=== PATIENT | female | born 1960 | race Caucasian/White ===

== ENCOUNTER → 2018-04-10 14:15 | Outpatient (CLI) | payer OTHER, SELFPAY ==
--- NOTE | 2018-04-10 | DI.MRI.S_ITS ---
PROCEDURE: MR KNEE LT WO CON INDICATIONS: PAIN IN LEFT KNEE TECHNIQUE: Noncontrast sagittal PD fast spin echo and T2 fast spin echo with fat saturation, sagittal 3-D FLASH with fat saturation; coronal T1 spin echo and PD fast spin echo with fat saturation, and axial PD fast spin echo with fat saturation through the knee. COMPARISON: None. FINDINGS: Image quality: Excellent. Menisci: Amorphous high signal intensity within the anterior and posterior horns of the medial meniscus, as well as the anterior and posterior horns of the lateral meniscus is present, without articular surface extension, consistent with mucoid degeneration. No evidence of tearing. Cruciate ligaments: The anterior and posterior cruciate ligaments appear intact. Medial structures: The medial collateral ligament appears intact. Visualized portions of the pes anserinus tendons appear normal. No abnormal bursal fluid. Lateral structures: The lateral collateral ligament, long and short heads of the biceps femoris tendon appear intact. The popliteus tendon appears iliana. Iliotibial band appears normal. Anterior structures: The quadriceps and patellar tendons appear intact. Patellar alignment is normal. No femoral trochlear dysplasia or ventral trochlear prominence. No edema in the infrapatellar fat pad. Bones and cartilage: No bone marrow contusions or fractures. Multiple intraosseous ganglia within the medial and lateral patellar facets are present. Severe articular cartilage loss overlies the medial and lateral patellar facets as well as patellar apex. Mild diffuse articular cartilage loss overlies the weightbearing aspects of the medial femoral condyle and medial tibial plateau. Joint space: There is physiologic knee joint fluid. Trace Wong's cyst. Normal appearing synovial plicae are incidentally noted. IMPRESSION: 1. No evidence of internal derangement. 2. Medial and patellofemoral compartment articular cartilage loss. 3. Trace Wong's cyst. Dictated by: Lukas Dennis M.D. on 04/10/2018 at 15:54 Approved by: Lukas Dennis M.D. on 04/10/2018 at 15:57
== END ==
PROVIDERS: Visit Provider Nurse Practitioner Family
DX: M25.562 Pain in left knee (principal)
CPT/HCPCS: 73721

== ENCOUNTER 2018-05-13 09:04 | Emergency (ER) | payer OTHER, SELFPAY ==
--- NOTE | 2018-05-13 09:06 | ED_ITS ---
HPI - Extremity Injury (Upper) General Chief Complaint: Extremity Injury, Upper Stated Complaint: FELL/HURT LEFT WRIST Time Seen by Provider: 05/13/18 09:05 Source: patient Mode of arrival: ambulatory Limitations: no limitations History of Present Illness HPI narrative: 57-year-old female here for evaluation of left wrist pain. Patient states that last evening she was walking down a slope in her yd when she fell backwards landing on her buttocks and her left wrist. She is unsure how she landed on her wrist. Did not hit her head. No loss of consciousness. States she has had pain in her wrist since then. Came in today for evaluation Related Data Previous Rx's Medication Instructions Recorded hydrocodone-acetaminophen [[place]] 1 tab PO Q4-6H PRN #10 tab 05/13/18 Allergies Allergy/AdvReac Type Severity Reaction Status Date / Time CODEINE Allergy Unknown Uncoded 11/02/17 12:29 Review of Systems Constitutional Denies frequent falls Cardiovascular Denies chest pain, Denies palpitations and Denies dyspnea Respiratory Denies dyspnea Musculoskeletal Comments: Left wrist pain Integumentary/Breasts Denies lesions and Denies rash Neurologic Denies frequent falls Comments: No numbness tingling left wrist Endocrine Denies palpitations Hematologic/Lymphatic Denies easy bleeding and Denies easy bruising [facility] Medical History Healthy adult (Acute) Surgical History No pertinent past surgical history (Acute) Exam Initial Vital Signs Initial Vital Signs: Vital Signs Temperature 97.2 F L 05/13/18 09:16 Pulse Rate 90 05/13/18 09:16 Respiratory Rate 12 05/13/18 09:16 Blood Pressure 135/86 05/13/18 09:16 Pulse Oximetry 100 05/13/18 09:16 Const General: cooperative, healthy appearing, comfortable, well developed, well groomed and acute distress HENMT Head: normal to inspection and normocephalic Resp Effort & Inspection: normal respiratory effort Cardio Pulses: radial pulses present on the left Skin Lesions: no lesions Rashes: no rashes Neuro Sensory Exam: no sensory deficits noted Extrem Other: Tenderness to palpation over the distal radius No ulnar styloid tenderness No anatomic snuffbox tenderness Pain with supination Patient able to pronate Left elbow unremarkable Left shoulder unremarkable Psych Appearance: grossly normal and well kempt Procedures Orthopedic Splinting/Casting Injury #1: Side: left Upper Extremity Injury Location: wrist Upper Extremity Immobilizer: sugar tong splint Course Orders Ordered: ED Orders 05/13/18 09:05 XR wrist LT min 3V Stat Vital Signs - 8 hr 05/13/18 09:16 Temperature 97.2 F L Pulse Rate 90 Respiratory Rate 12 Blood Pressure 135/86 Pulse Oximetry 100 [facility] - Extremity Injury (Upper) Imaging Data XR wrist: Radiologist's impression: [address] [address] XRay Report Signed Patient: Marissa Jarquin KMR#: [id number] : [id number]:[id number] Age/Sex: 57 / FDate of Service: 05/13/18 Loc: ED Accession Number: [id number] Procedure: XR wrist LT min 3V Ordering Provider: Nick Montenegro D.O. PROCEDURE: XR WRIST LT MIN 3V INDICATIONS: fall with pain TECHNIQUE: 3 views of the wrist were acquired. COMPARISON: None. FINDINGS: Bones: Minimally displaced distal radial metaphysis fracture. Scaphoid view: Not obtained. Soft tissues: No suspicious soft tissue calcifications. IMPRESSION: Minimally displaced distal radial metaphyseal fracture. Dictated by: Kaye Segal M.D. on 05/13/2018 at 9:35 Approved by: Kaye Segal M.D. on 05/13/2018 at 9:35 [facility] Narrative Medical decision making narrative: Patient is neurovascularly intact. X-ray shows a distal radius fracture Patient was placed in a splint by myself as described above. She was given a copy of her x-rays to take to the [facility] for orthopedic follow-up Patient was given return precautions. She states that she can take [place] at home despite her allergies to codeine. She states she does take some Benadryl and has no problem with it. She was given care instructions with regard to the splint. Discharge Plan Departure Patient Disposition: Home Clinical Impression: Distal radius fracture, left Instructions: DI for Wrist Fracture, How to Take Care of Your Splint Activity Restrictions/Additional Instructions: [place] Also contact your primary care doctor. Keep the splint on and keep it clean and keep it dry. Return to the emergency department for any new or worsening symptoms. Prescriptions: New hydrocodone-acetaminophen [[place]] 5-325 mg tablet 1 tab PO Q4-6H PRN (Reason: pain) Qty: 10 RF: 0
[2018-05-13 09:16] VITALS: BP 135/86; PULSE 90; RESP 12; TEMP 36.2; O2SAT 100
--- NOTE | 2018-05-13 09:46 | PC.NURSE ---
placed by dr. flores
== END 2018-05-13 10:34 | disposition home or self-care (01) ==
PROVIDERS: Emergency Provider Emergency Medicine
DX: S52.502A Unspecified fracture of the lower end of left radius, initial encounter for closed fracture (principal); W01.0XXA Fall on same level from slipping, tripping and stumbling without subsequent striking against object, initial encounter
CPT/HCPCS: 29125; 29240; 73110; 99283

== ENCOUNTER 2019-04-25 15:43 | Emergency (ER) | payer OTHER, SELFPAY ==
[2019-04-25] VITALS (11 sets, daily range): BP systolic 99–144; BP diastolic 50–92; PULSE 60–114; RESP 14–22; TEMP 35.9–36.6; O2SAT 93–100; BMI 23.8
--- NOTE | 2019-04-25 15:55 | DI.RAD.S_ITS ---
PROCEDURE: XR RIBS LT MIN 3V W CXR1V INDICATIONS: bucked off horse TECHNIQUE: 2 views of the left ribs were acquired, along with a single view chest. COMPARISON: [facility], CR, XR HIP W PEL IF DONE LT 2V, 04/25/2019, 15:57. FINDINGS: Surgical changes and devices: None. Bones and chest wall: Lateral third and fourth rib fractures, minimally displaced. Also noted are left L2 and L3 transverse process fractures. Lungs and pleura: Small left pneumothorax. No pleural effusion identified. No focal consolidation. Scattered atelectasis. Mediastinum: Mediastinal contours appear normal. Heart size is normal. IMPRESSION: Small left pneumothorax Lateral left third and fourth rib fractures. Left L2 and L3 transverse process fractures. Findings were personally telephoned and discussed with Dr. Vallejo in the emergency department at 1630 hrs 04/25/19. Dictated by: Mamadou Kelly M.D. on 04/25/2019 at 16:23 Approved by: Mamadou Kelly M.D. on 04/25/2019 at 16:33
--- NOTE | 2019-04-25 15:56 | DI.RAD.S_ITS ---
PROCEDURE: XR HIP W PEL IF DONE LT 2V INDICATIONS: bucked off horse TECHNIQUE: AP pelvis with lateral view(s) of the left hip(s). COMPARISON: None. FINDINGS: Bones: No fractures or dislocations. Pelvic ring appears intact. No suspicious bony lesions. Soft tissues: The visualized bowel gas pattern is normal. No suspicious soft tissue calcifications. IMPRESSION: No fracture identified Dictated by: Mamadou Kelly M.D. on 04/25/2019 at 16:33 Approved by: Mamadou Kelly M.D. on 04/25/2019 at 16:34
--- NOTE | 2019-04-25 17:08 | ED_ITS ---
HPI - Fall General Chief Complaint: Fall Stated Complaint: back pain, thrown from horse Time Seen by Provider: 04/25/19 16:30 Source: patient Mode of arrival: Ambulatory History of Present Illness HPI Narrative: This is a 58-year-old male comes in with complaint of being thrown from her horse. Patient states she was bucked off, she did not think she hit her head but she also was dazed for a couple 1-2 minutes according to her . He states that she quickly came back to her normal baseline. Patient denies headache, she denies neck pain, she does complain of some lower back pain and kind of left-sided chest pain. Patient denies any shortness of breath. She denies any dizziness. No vision changes. Denies any vomiting but has had some slight nausea. She denies any incontinence of bowel or bladder, she denies any weakness, numbness of her lower extremities. Patient states that she does have pain kind of in her lower back particularly when she tries to lift her left leg causes pain in the back but not in her leg. Patient denies any blood thinners. She takes naproxen regularly for chronic back issues. Denies any alcohol today, states she drinks occasionally. Positive for tobacco. Related Data Home Medications Medication Instructions Recorded Confirmed naproxen 500 mg PO BID 04/25/19 04/25/19 Allergies Allergy/AdvReac Type Severity Reaction Status Date / Time codeine Allergy Unknown Verified 04/25/19 17:11 Review of Systems Review of Systems ROS Unobtainable: All systems reviewed & are unremarkable except as noted in HPI and below Exam Narrative Exam Narrative: GEN: Patient appears in mild distress. HEAD: No evidence of trauma, no raccoon/Rosales sign. NECK: Nontender, painless range of motion, trachea midline Negative Nexus criteria, there is no midline tenderness, distracting injury, altered mental status, neuro deficit, recent EtOH. EYES: PERRLA, EOMI ENT: External inspection normal, trachea is midline, TM's are normal no h emotypanum, Nares are clear, no septal hematoma, no dental or oral injury, airway is normal and with normal occlusion, No bony tenderness RESP: Chest tender on the left and has symmetric movement, no flail chest, no ecchymosis, breath sounds bilateral bases. no crackles, wheezes or rales CVS: Heart sounds are normal, no murmur noted, No JVD. ABG/GI: Nontender, soft, normal bowel sounds, no distention, no organomegaly, pelvic rock is negative NEURO: Oriented AOx3, neuro is grossly intact, sensation and motor is normal all 4 extremities moving, cranial nerves II through XII are intact, GCS is 15 PSYCH: Normal mood and affect SKIN: Intact, warm and dry, no crepitus and without decubitus BACK: No CVA tenderness, no vertebral tenderness, patient has mild left lumbar discomfort, no step-off's, no crepitus EXT: Atraumatic, hips are nontender, no pedal edema, normal color and temperature, normal range of motion of extremities with normal tendon exam, 2+ pulses in all four extremities Initial Vital Signs Initial Vital Signs: Vital Signs Temperature 96.7 F L 04/25/19 15:48 Pulse Rate 114 H 04/25/19 15:48 Respiratory Rate 18 04/25/19 15:48 Blood Pressure 121/72 04/25/19 15:48 Pulse Oximetry 96 04/25/19 15:48 [facility] Medical History Healthy adult (Acute) Surgical History No pertinent past surgical history (Acute) Social History Smoking Status: Current every day smoker Social History (Updated 04/25/19 @ 18:32 by Amanda Vallejo DO) Smoking Status: Current every day smoker alcohol intake: current substance use type: does not use Course Orders Ordered: ED Orders 04/25/19 15:55 XR ribs LT min 3V w CXR1V Stat 04/25/19 15:56 XR hip w pel if done LT 2V Stat 04/25/19 17:09 CT cervical spine wo con Stat CT chest abd pel w con Stat CT head/brain wo con Stat EKG-12 Lead Stat 04/25/19 17:20 Complete Blood Count AUTO DIFF Stat Comprehensive Metabolic Panel Stat Ethanol (ETOH) Stat Lipase Stat Troponin & CK Cardiac Panel Stat Type and Screen Stat 04/25/19 18:40 Urine Microscopic Stat 04/25/19 19:49 XR chest 1V Stat Discontinued Medications Sodium Chloride (Normal Saline 0.9%) 1,000 mls @ 1,000 mls/hr IV BOLUS ONE Stop: 04/25/19 18:08 Last Admin: 04/25/19 17:40 Dose: 1,000 mls/hr Documented by: JULIUS Lidocaine/Sodium Bicarbonate (Buffered Lidocaine 10 Ml Syr) 10 ml INJ NOW ONE Stop: 04/25/19 19:04 Morphine Sulfate (Morphine) 2 mg IV NOW ONE Stop: 04/25/19 17:11 Last Admin: 04/25/19 17:40 Dose: 2 mg Documented by: JULIUS Morphine Sulfate (Morphine) 4 mg IM NOW ONE Stop: 04/25/19 18:09 Last Admin: 04/25/19 18:12 Dose: 4 mg Documented by: JULIUS Vital Signs Vital signs: Vital Signs - 8 hr 04/25/19 15:48 04/25/19 17:00 04/25/19 17:30 Temperature 96.7 F L Pulse Rate 114 H 60 100 H Respiratory Rate 18 17 14 Blood Pressure 121/72 Blood Pressure [Left Arm] 142/81 H 141/92 H Pulse Oximetry 96 100 99 04/25/19 18:00 04/25/19 18:30 04/25/19 19:00 Temperature Pulse Rate 94 H 102 H 105 H Respiratory Rate 17 17 18 Blood Pressure Blood Pressure [Left Arm] 141/90 H 136/88 144/92 H Pulse Oximetry 96 100 100 04/25/19 19:20 04/25/19 19:40 04/25/19 19:55 Temperature Pulse Rate 105 H 97 H Respiratory Rate 21 14 22 Blood Pressure Blood Pressure [Left Arm] 118/57 L 99/50 L Pulse Oximetry 100 100 04/25/19 20:00 Temperature Pulse Rate 92 H Respiratory Rate 15 Blood Pressure Blood Pressure [Left Arm] 123/72 Pulse Oximetry 93 MDM - Fall Lab Data Attestation: I reviewed the patient's lab results. Result diagrams: 04/25/19 17:20 04/25/19 17:20 Labs: Lab Results 04/25/19 04/25/19 04/25/19 Range/Units 17:20 17:20 17:20 WBC 14.8 H (4.5-11.0) X10^3/uL RBC 4.21 (4.0-5.2) X10^6/uL Hgb 13.6 (12.0-16.0) g/dL Hct 39.6 (36-46) % MCV 94.1 (80-100) fL MCH 32.3 (26-34) PG MCHC 34.3 (30-36) % RDW 12.8 (11.6-14.8) % Plt Count 165 (150-400) X10^3/uL Neut % (Auto) 84.7 H (50-75) % Lymph % (Auto) 10.6 L (25-40) % [place] % (Auto) 4.4 (3-14) % Eos % (Auto) 0.1 L (2-4) % Baso % (Auto) 0.2 (0-2) % Neut # (Auto) 75793 H (4287-5457) /uL Lymph # (Auto) 1600 (0413-8934) /uL [place] # (Auto) 700 (0-900) /uL Eos # (Auto) 0 (0-450) /uL Baso # (Auto) 0 (0-100) /uL Sodium 138 (137-145) mmol/L Potassium 3.7 (3.4-5.1) mmol/L Chloride 101 (98-107) mmol/L Carbon Dioxide 26 (22-32) mmol/L BUN 20 H (7-17) mg/dL Creatinine 0.80 (0.52-1.04) mg/dL Estimated GFR > 60.0 (>60) mL/min BUN/Creatinine Ratio 25.0 H (6-22) Glucose 124 H (70-100) mg/dL Calcium 10.1 (8.4-10.2) mg/dL Total Bilirubin 0.4 (0.2-1.3) mg/dL AST 64 H (14-36) IU/L ALT 40 (9-52) IU/L Alkaline Phosphatase 110 (38-126) U/L Total Creatine Kinase 732 H (30-135) U/L CK-MB (CK-2) 13.70 H (<2.37) ng/mL CK-MB (CK-2) Rel Index 1.9 (1.5-5.0) % Troponin I < 0.012 (0.01-0.034) ng/mL Total Protein 7.3 (6.3-8.2) g/dL Albumin 4.3 (3.5-5.0) g/dL Globulin 3.0 (1.7-4.1) g/dL Albumin/Globulin Ratio 1.4 (1.0-2.8) Lipase 39 (23-300) U/L Urine RBC (0-5/HPF) Urine WBC (0-5/HPF) Ur Squamous Epith Cells (0-5/HPF) Urine Bacteria (None) Hyaline Casts (None) Ur Culture Indicated? Ethyl Alcohol < 10 ( - 10) mg/dL Blood Type O Positive Antibody Screen Negative 04/25/19 Range/Units 18:40 WBC (4.5-11.0) X10^3/uL RBC (4.0-5.2) X10^6/uL Hgb (12.0-16.0) g/dL Hct (36-46) % MCV (80-100) fL MCH (26-34) PG MCHC (30-36) % RDW (11.6-14.8) % Plt Count (150-400) X10^3/uL Neut % (Auto) (50-75) % Lymph % (Auto) (25-40) % [place] % (Auto) (3-14) % Eos % (Auto) (2-4) % Baso % (Auto) (0-2) % Neut # (Auto) (5806-1446) /uL Lymph # (Auto) (9347-8687) /uL [place] # (Auto) (0-900) /uL Eos # (Auto) (0-450) /uL Baso # (Auto) (0-100) /uL Sodium (137-145) mmol/L Potassium (3.4-5.1) mmol/L Chloride (98-107) mmol/L Carbon Dioxide (22-32) mmol/L BUN (7-17) mg/dL Creatinine (0.52-1.04) mg/dL Estimated GFR (>60) mL/min BUN/Creatinine Ratio (6-22) Glucose (70-100) mg/dL Calcium (8.4-10.2) mg/dL Total Bilirubin (0.2-1.3) mg/dL AST (14-36) IU/L ALT (9-52) IU/L Alkaline Phosphatase (38-126) U/L Total Creatine Kinase (30-135) U/L CK-MB (CK-2) (<2.37) ng/mL CK-MB (CK-2) Rel Index (1.5-5.0) % Troponin I (0.01-0.034) ng/mL Total Protein (6.3-8.2) g/dL Albumin (3.5-5.0) g/dL Globulin (1.7-4.1) g/dL Albumin/Globulin Ratio (1.0-2.8) Lipase (23-300) U/L Urine RBC 0-1/hpf (0-5/HPF) Urine WBC 0-1/hpf (0-5/HPF) Ur Squamous Epith Cells 0-1 /hpf (0-5/HPF) Urine Bacteria None seen (None) Hyaline Casts 0-1/lpf (None) Ur Culture Indicated? Cult not indicated Ethyl Alcohol ( - 10) mg/dL Blood Type Antibody Screen Urine Dip Bedside Urine Glucose Negative Bedside Urine Bilirubin - Negative Bedside Urine Ketone - Negative Urine Specific [place] 1.010 Bedside Urine Occult Blood + Bedside Urine pH 5.5 Bedside Urine Protein - Negative Bedside Urine Urobilinogen - Negative Bedside Urine Nitrite - Negative Bedside Urine Leukocytes - Negative Esterase Imaging Data Chest x-ray: Radiologist's impression: [address] [address] XRay Report Signed Patient: Marissa Jarquin KMR#: [id number] : 1Acct:[id number] Age/Sex: 58 / FDate of Service: 04/25/19 Loc: ED Accession Number: [id number] Procedure: XR ribs LT min 3V w CXR1V Ordering Provider: Amanda Vallejo D.O. PROCEDURE: XR RIBS LT MIN 3V W CXR1V INDICATIONS: bucked off horse TECHNIQUE: 2 views of the left ribs were acquired, along with a single view chest. COMPARISON: [facility], [place]ISY, XR HIP W PEL IF DONE LT 2V, 04/25/2019, 15:57. FINDINGS: Surgical changes and devices: None. Bones and chest wall: Lateral third and fourth rib fractures, minimally displaced. Also noted are left L2 and L3 transverse process fractures. Lungs and pleura: Small left pneumothorax. No pleural effusion identified. No focal consolidation. Scattered atelectasis. Mediastinum: Mediastinal contours appear normal. Heart size is normal. IMPRESSION: Small left pneumothorax Lateral left third and fourth rib fractures. Left L2 and L3 transverse process fractures. Findings were personally telephoned and discussed with Dr. Vallejo in the emergency department at 1630 hrs 04/25/19. Dictated by: Mamadou Kelly M.D. on 04/25/2019 at 16:23 Approved by: Mamadou Kelly M.D. on 04/25/2019 at 16:33 pelvis/hip: Radiologist's impression: [address] [address] XRay Report Signed Patient: Marissa Jarquin KMR#: [id number] : [id number]:[id number] Age/Sex: 58 / FDate of Service: 04/25/19 Loc: ED Accession Number: [id number] Procedure: XR hip w pel if done LT 2V Ordering Provider: Amanda Vallejo D.O. PROCEDURE: XR HIP W PEL IF DONE LT 2V INDICATIONS: bucked off horse TECHNIQUE: AP pelvis with lateral view(s) of the left hip(s). COMPARISON: None. FINDINGS: Bones: No fractures or dislocations. Pelvic ring appears intact. No suspicious bony lesions. Soft tissues: The visualized bowel gas pattern is normal. No suspicious soft tissue calcifications. IMPRESSION: No fracture identified Dictated by: Mamadou Kelly M.D. on 04/25/2019 at 16:33 Approved by: Mamadou Kelly M.D. on 04/25/2019 at 16:34 CT scan - head: Radiologist's impression: [address] [address] [address] Scan Report Signed Patient: Marissa Jarquin KMR#: [id number] : [id number]:[id number] Age/Sex: 58 / FDate of Service: 04/25/19 Loc: ED Accession Number: [id number] Procedure: CT head/brain wo con Ordering Provider: Amanda Vallejo D.O. PROCEDURE: CT HEAD/BRAIN WO CON INDICATIONS: low back pain, rib pain, bucked off horse TECHNIQUE: Noncontrast 4.5 mm thick angled axial sections acquired from the foramen magnum to the vertex, with coronal and sagittal reformats. For radiation dose reduction, the following was used: automated exposure control, adjustment of mA and/or kV according to patient size. COMPARISON: None. FINDINGS: Image quality: Excellent. CSF spaces: Basal cisterns are patent. No extra-axial fluid collections. Ventricles are T0 parenchyma hemorrhage present in the left frontal lobe on image 20 series 2. There is also curvilinear hyperdensity seen in the region of the right convexity sulci image 25 series 2 which could represent extra-axial/subarachnoid blood. Skull and face: Calvarium and visualized facial bones are intact, without suspicious lesions. Sinuses: Visualized sinuses and mastoids are clear. IMPRESSION: Bilateral subtle areas of suspected acute intracranial hemorrhage at the vertex as detailed above. Critical findings were personally telephoned and discussed with Dr. Vallejo in the emergency department at 1832 hours 04/25/19. Dictated by: Mamadou Kelly M.D. on 04/25/2019 at 18:15 Approved by: Mamadou Kelly M.D. on 04/25/2019 at 18:33 CT Cspine: Radiologist's impression: [place] [address] CT Scan Report Signed Patient: Marissa Jarquin KMR#: [id number] : [id number]:[id number] Age/Sex: 58 / FDate of Service: 04/25/19 Loc: ED Accession Number: [id number] Procedure: CT cervical spine wo con Ordering Provider: Amanda Vallejo D.O. PROCEDURE: CT CERVICAL SPINE WO CON INDICATIONS: low back pain, rib pain, bucked off horse TECHNIQUE: Noncontrast 3 mm thick sections acquired from the skull base to the T4 level. Sagittal and coronal reformats were then constructed. For radiation dose reduction, the following was used: automated exposure control, adjustment of mA and/or kV according to patient size. COMPARISON: [facility], CR, XR RIBS LT MIN 3V W CXR1V, 04/25/2019, 15:57. FINDINGS: Image quality: Excellent. Bones: No fractures or dislocations. Visualized superior ribs are intact. Straightening of the normal cervical lordosis and spondylitic changes, most pronounced at C5-C6. Diffuse facet arthropathy Soft tissues: Small left pneumothorax (known) IMPRESSION: No cervical spinal fracture identified. Small left pneumothorax (known) Dictated by: Mamadou Kelly M.D. on 04/25/2019 at 18:18 Approved by: Mamadou Kelly M.D. on 04/25/2019 at 18:21 chest/abd/pelvis CT: Radiologist's impression: [address] [address] [address] Scan Report Signed Patient: Marissa Jarquin KMR#: [id number] : [id number]:[id number] Age/Sex: 58 / FDate of Service: 04/25/19 Loc: ED Accession Number: [id number] Procedure: CT chest abd pel w con Ordering Provider: Amanda Vallejo D.O. PROCEDURE: CT CHEST ABD PEL W CON INDICATIONS: low back pain, rib pain, bucked off horse TECHNIQUE: After the administration of intravenous contrast, 5 mm thick sections acquired from the lung apices to the symphysis. 2.5 mm thick coronal and sagittal reformats were acquired. Additional 7 mm thick coronal maximum intensity projection (MIP) reformats acquired through the lungs. Optional 10-minute delayed imaging may be performed from the kidneys to the bladder. For radiation dose reduction, the following was used: automated exposure control, adjustment of mA and/or kV according to patient size. COMPARISON: None. FINDINGS: Image quality: Excellent. CHEST: Lungs: Small-moderate left pneumothorax is present. There is posterior pulmonary contusion versus atelectasis. No right-sided pneumothorax identified. Elsewhere no acute consolidation. No pleural effusion. Mediastinum: No mediastinal hematomas. Heart size is normal. No pericardial effusion. Thoracic aorta and pulmonary arteries demonstrate normal size and enhancement. No mediastinal or hilar adenopathy. Esophagus is normal in caliber. No hiatal hernia. Chest wall: Minimally displaced fractures of the third-sixth left ribs. No axillary or supraclavicular adenopathy. Thyroid gland unremarkable. ABDOMEN: Solid organs: Liver is normal in size and enhancement, without lacerations. Gallbladder unremarkable. Biliary system is non-dilated. Pancreas enhances normally, without transection. Spleen is normal in size and enhancement, without lacerations. No adrenal hematomas. Both kidneys enhance normally, without hydronephrosis or lacerations. Peritoneum and bowel: No free fluid or air. Unenhanced bowel loops demonstrate normal wall thickness and caliber. Nodes and vessels: No retroperitoneal or mesenteric adenopathy. Aorta and inferior vena cava are normal in size and enhancement. Miscellaneous: No ventral hernias. PELVIS: Genitourinary: Bladder wall thickness is normal. Miscellaneous: No inguinal hernias or adenopathy. Bones: There is left posterior flank contusion. Fractures of the L1-L4 left transverse processes. IMPRESSION: Small-moderate left pneumothorax (known) Minimally displaced third-sixth left rib fractures. L1-L4 left transverse processes fractures Left posterior flank contusion. Mild posterior lower lobe pulmonary contusion versus atelectasis Diffuse pancolonic wall thickening, which would be unusual for traumatic twyla ology. This raises the possibility of infectious versus inflammatory colitis. Please correlate clinically. Critical findings were personally telephoned and discussed with Dr. Vallejo in the emergency department at 1832 hours 04/25/19. Dictated by: Mamadou Kelly M.D. on 04/25/2019 at 18:21 Approved by: Mamadou Kelly M.D. on 04/25/2019 at 18:32 ECG Data Attestation: I personally reviewed and interpreted this ECG as follows: Interpretation: Sinus rhythm rate of 99 NV 161 QRS of 105 QTC of 408. No ST elevation or depression. MDM Narrative Medical decision making narrative: Patient's x-ray shows pneumothorax, appears small to moderate, patient vitals stable, denies SOB, patient also shows possible transverse process fractures. The patient was sent for CT imaging. General surgery consulted. Lab work shows leukocytosis, BUN of 20, glucose of 124, AST of 64 with a CK-MB of 13.7 and a total CK of 09/29/2031, negative troponin. Initially 2 mg of morphine followed by 4 mg and feels her pain is well controlled. CT imaging shows several small areas of potential bleed patient continues to have pneumothorax looks moderate in size, she has rib fractures 3 through 6 on the left and L1 through L4 transverse process fracture. And some thickening of the colon although per Radiology they would suspect more of a colitis, they do not feel that this appears similar to bruising or hematoma. Patient is nontender on her abdomen, no ecchymosis or skin changes. [facility] was contacted, I spoke with Dr. Gordon who accepts for transfer. Plan for Chest tube placement, Dr. Duke from General surgery at [facility] arrived in the department and would like to place a Heimlich valve. This was placed by Dr. Duke, x-ray shows improvement of pneumothorax with appropriate placement. Patient tolerated procedure quite well. Patient had some hypotension immediately after pain medications while placing Heimlich valve, otherwise she has not been hypotensive. Critical Care Time Critical Care Time Critical Care Time: Yes Total Critical Care Time: 165 Attestation: The high probability of a clinically significant, sudden or life threatening deterioration of the [pulm, neuro, cardiac] system(s) required my full and direct attention, intervention and personal management. The aggregate critical care time was [165] minutes. This time is in addition to time spent performing reported procedures but includes the following: [x] Data Review and interpretation [x] Patient assessment and monitoring of vital signs [x] Documentation [x] Medication orders and management Discharge Plan Departure Patient Disposition: [facility] Clinical Impression: Pneumothorax, Lumbar transverse process fracture, Intracranial hemorrhage Prescriptions: No Action naproxen 500 mg tablet 500 mg PO BID RF: 0
[2019-04-25 17:27] LABS: Add Manual Diff / Slide Review NO; Basophils Absolute Auto 0 /uL (0-100); Basophils Percent Auto 0.2 % (0-2); Eosinophils Absolute Auto 0 /uL (0-450); Eosinophils Percent Auto 0.1 % (2-4); Hematocrit 39.6 % (36-46); Hemoglobin 13.6 g/dL (12.0-16.0); Lymphocytes Absolute Auto 1600 /uL (1100-4500); Lymphocytes Percent Auto 10.6 % (25-40); Mean Corpuscular HGB Conc 34.3 % (30-36); Mean Corpuscular Hemoglobin 32.3 PG (26-34); Mean Corpuscular Volume 94.1 fL (80-100); Monocytes Absolute Auto 700 /uL (0-900); Monocytes Percent Auto 4.4 % (3-14); Neutrophils Absolute Auto 12500 /uL (1500-7000); Neutrophils Percent Auto 84.7 % (50-75); Platelet Count 165 X10^3/uL (150-400); Red Blood Cell Count 4.21 X10^6/uL (4.0-5.2); Red Cell Distribution Width 12.8 % (11.6-14.8); White Blood Cell Count 14.8 X10^3/uL (4.5-11.0)
[2019-04-25 17:40] LABS: Alanine Aminotransferase 40 IU/L (9-52); Albumin 4.3 g/dL (3.5-5.0); Albumin Globulin Ratio 1.4 (1.0-2.8); Alkaline Phosphatase 110 U/L (38-126); Aspartate Aminotransferase 64 IU/L (14-36); Bilirubin Total 0.4 mg/dL (0.2-1.3); Blood Urea Nitrogen 20 mg/dL (7-17); Calcium 10.1 mg/dL (8.4-10.2); Carbon Dioxide 26 mmol/L (22-32); Chloride 101 mmol/L (98-107); Creatine Kinase 732 U/L (30-135); Estimated Glomerular Filt Rate > 60.0 mL/min (>60); Ethanol (ETOH) < 10 mg/dL; Glucose 124 mg/dL (70-100); HEMOLYSIS < 15 (0-50); Lipase 39 U/L (23-300); Potassium 3.7 mmol/L (3.4-5.1); Sodium 138 mmol/L (137-145); Total Protein 7.3 g/dL (6.3-8.2)
[2019-04-25] MEDS: SODIUM CHLORIDE 0.9% 1,000 ML 1000 ML IV (17:40)
[2019-04-25] MEDS: MORPHINE 2 MG/ML INJ IV (17:40)
[2019-04-25 17:51] LABS: Troponin I < 0.012 ng/mL (0.01-0.034)
[2019-04-25 17:55] LABS: CKMB % Relative Index 1.9 % (1.5-5.0)
[2019-04-25] MEDS: MORPHINE 4 MG/ML INJ IM (18:12)
[2019-04-25 18:57] LABS: Bacteria Urine None Seen
[2019-04-25 19:03] LABS: Culture Indicated Urine Cult Not Indicated; Hyaline Casts Urine 0-1/LPF; RBC Urine 0-1/HPF (0-5/HPF); Squamous Epithelial Cell Urine 0-1 /HPF (0-5/HPF); WBC Urine 0-1/HPF (0-5/HPF)
--- NOTE | 2019-04-25 19:49 | DI.RAD.S_ITS ---
PROCEDURE: XR CHEST 1V INDICATIONS: heimlich valve TECHNIQUE: One view of the chest was acquired. COMPARISON: [facility], CR, XR RIBS LT MIN 3V W CXR1V, 04/25/2019, 15:57. FINDINGS: Surgical changes and devices: Status post placement of left chest tube Lungs and pleura: Tiny residual left apical pneumothorax, markedly improved. No new focal consolidation Mediastinum: Mediastinal contours appear normal. Heart size is normal. Bones and chest wall: No suspicious bony lesions. Overlying soft tissues appear unremarkable. IMPRESSION: Status post placement of left chest tube with interval improvement of left pneumothorax. Trace left apical residual pneumothorax. Dictated by: Mamadou Kelly M.D. on 04/25/2019 at 20:26 Approved by: Mamadou Kelly M.D. on 04/25/2019 at 20:28
[2019-04-25] MEDS: HYDROMORPHONE 1 MG INJ (19:51)
[2019-04-25] MEDS: LIDOCAINE 2% INJ MDV 20 ML (20:12)
--- NOTE | 2019-04-25 20:21 | P.OP_ITS ---
Operative Date/Time/Diagnoses Date of procedure: 04/25/19 Time of procedure: 20:10 Pre-op diagnosis: Left-sided pneumothorax with rib fractures Post-op diagnosis: same Procedure & Clinicians Procedure: Placement of pigtail chest tube(Cook catheter) Same procedure as scheduled: Yes Indications: Pneumothorax Surgeon: Russ Duke Anesthesia Type: Local Operative Notes Findings: A pigtail in the apex of the lung with re-expansion of the lung in progress Closure Type: not applicable Specimen(s): none sent Prosthetic devices, grafts, tissues, transplants, or devices: Catheter Estimated Blood Loss (mL): 3 Blood products transfused: none Procedure in detail: Patient is placed supine with her left arm overhead. She was prepped with chlorhexidine alcohol. Local anesthetic was infiltrated with 2% lidocaine a total of 5 cc was used. A small suzie was made in the skin and the Cook catheter inserted. The 1st intent root did not go properly in the chest and was in the subcu. It was removed and a 2nd catheter was inserted and manipulated multiple times in order to get it in good position. Ultimately the tube was secured and the long appeared partially re-expanded on x-ray. Heimlich valve appeared to be functioning normally. The tube was secured to the patient with an 0 0 silk and with tape. Complications: none Post-operative Condition: stable Disposition: other (This was done in the emergency room. Patient being transferred to [facility]) Plan for aftercare: Not applicable, patient being transferred to a tertiary care facility for care due to intracranial hemorrhage
== END 2019-04-25 21:08 | disposition short-term general hospital (02) ==
PROVIDERS: Emergency Provider Emergency Medicine
DX: J93.9 Pneumothorax, unspecified (principal); S32.009A Unspecified fracture of unspecified lumbar vertebra, initial encounter for closed fracture; I62.9 Nontraumatic intracranial hemorrhage, unspecified; V80.010A Animal-rider injured by fall from or being thrown from horse in noncollision accident, initial encounter
CPT/HCPCS: 32551; 36415; 70450; 71045; 71101; 71260; 72125; 73502; 74177; 80053; 80320; 81003; 81015; 82550; 82553; 83690; 84484; 85025; 86850; 86900; 86901; 93005; 94770; 96361; 96372; 96374; 96375; 99285; 99291; 99292; J1170; J2270; Q9967

== ENCOUNTER 2022-12-22 18:47 | Emergency (ER) | payer OTHER, SELFPAY ==
[2022-12-22 18:56] VITALS: BP 144/70; PULSE 91; RESP 18; TEMP 36.1; O2SAT 100; BMI 22.8
[2022-12-22 19:13] LABS: Add Manual Diff / Slide Review NO; Basophils Absolute Auto 0 /uL (0-100); Basophils Percent Auto 0.5 % (0-2); Eosinophils Absolute Auto 100 /uL (0-450); Eosinophils Percent Auto 1.2 % (2-4); Hematocrit 39.3 % (36-46); Hemoglobin 13.4 g/dL (12.0-16.0); Lymphocytes Absolute Auto 2500 /uL (1100-4500); Lymphocytes Percent Auto 38.9 % (25-40); Mean Corpuscular HGB Conc 34.2 % (30-36); Mean Corpuscular Hemoglobin 31.6 PG (26-34); Mean Corpuscular Volume 92.4 fL (80-100); Monocytes Absolute Auto 500 /uL (0-900); Monocytes Percent Auto 7.3 % (3-14); Neutrophils Absolute Auto 3400 /uL (1500-7000); Neutrophils Percent Auto 52.1 % (50-75); Platelet Count 171 X10^3/uL (150-400); Red Blood Cell Count 4.26 X10^6/uL (4.0-5.2); Red Cell Distribution Width 13.1 % (11.6-14.8); White Blood Cell Count 6.4 X10^3/uL (4.5-11.0)
[2022-12-22 19:25] LABS: Alanine Aminotransferase 26 IU/L (<35); Albumin 4.6 g/dL (3.5-5.0); Albumin Globulin Ratio 1.4 (1.0-2.8); Alkaline Phosphatase 119 U/L (38-126); Aspartate Aminotransferase 31 IU/L (14-36); BUN Creatinine Ratio 22.8 (6-22); Bilirubin Total 0.4 mg/dL (0.2-1.3); Blood Urea Nitrogen 18 mg/dL (7-17); Calcium 9.6 mg/dL (8.4-10.2); Carbon Dioxide 25 mmol/L (22-32); Chloride 104 mmol/L (98-107); Estimated Glomerular Filt Rate > 60 mL/min (>60); Globulin 3.2 g/dL (1.7-4.1); Glucose 103 mg/dL (80-110); HEMOLYSIS < 15 (0-50); Lipase 79 U/L (23-300); Potassium 3.7 mmol/L (3.4-5.1); Sodium 138 mmol/L (137-145); Total Protein 7.8 g/dL (6.3-8.2)
[2022-12-22 19:30] LABS: Bacteria Urine None Seen; Culture Indicated Urine Cult Not Indicated; RBC Urine None Seen (0-5/HPF); Urine Comments Microscopic Normal; WBC Urine None Seen (0-5/HPF)
--- NOTE | 2022-12-22 20:34 | ED_ITS ---
HPI - General Adult General Chief complaint: Abdominal Pain Stated complaint: increasing abd pain started today Time Seen by Provider: 12/22/22 19:17 Source: patient Mode of arrival: Ambulatory History of Present Illness HPI narrative: 62-year-old female who is here for evaluation of upper abdominal discomfort that started earlier today. She describes it as a cramping sensation. No vomiting. No diarrhea. No fevers. Has not tried anything for the symptoms prior to arrival. Related Data Allergies Allergy/AdvReac Type Severity Reaction Status Date / Time codeine Allergy Unknown Verified 04/28/22 07:19 Review of Systems Constitutional Constitutional: Reports system reviewed and no additional complaints, except as documented Gastrointestinal Gastrointestinal: Reports system reviewed and no additional complaints, except as documented Genitourinary Genitourinary: Reports system reviewed and no additional complaints, except as documented Musculoskeletal Musculoskeletal: Reports system reviewed and no additional complaints, except as documented Integumentary/Breasts Skin/Breast: Reports system reviewed and no additional complaints, except as documented Patient History Medical History Healthy adult Surgical History No pertinent past surgical history Social History Smoking Status: Former smoker alcohol intake: current substance use type: does not use Smoking Status: Former smoker alcohol intake frequency: holidays/special occasions only Substance Use Type: does not use Exam Initial Vital Signs Initial Vital Signs: Vital Signs Temperature 97.0 F L 12/22/22 18:56 Pulse Rate 91 H 12/22/22 18:56 Respiratory Rate 18 12/22/22 18:56 Blood Pressure 144/70 H 12/22/22 18:56 Pulse Oximetry 100 12/22/22 18:56 Oxygen Delivery Method Room Air 12/22/22 18:56 Const General: cooperative and comfortable HENMT Head: normal to inspection and normocephalic Resp Effort & Inspection: normal respiratory effort Cardio Rate: regular rate GI Inspection: normal to inspection Palpation: soft, No firm and No tender Neuro General: patient alert, patient awake and moves all extremities Course Orders Ordered: ED Orders 12/22/22 19:14 EKG-12 Lead Stat 12/22/22 20:34 CT abdomen pelvis w con Stat 12/22/22 22:43 Urine Microscopic Stat Discontinued Medications Morphine Sulfate (Morphine 4 Mg/Ml Inj) 4 mg IV NOW ONE Stop: 12/22/22 20:35 Last Admin: 12/22/22 20:39 Dose: 4 mg Documented By: JUANCARLOS Ondansetron HCl (Ondansetron 4 Mg Odt) 4 mg PO NOW PRN PRN Reason: Nausea And Vomiting Ondansetron HCl (Ondansetron 4 Mg/2 Ml Inj) 4 mg IV NOW PRN PRN Reason: Nausea And Vomiting Last Admin: 12/22/22 20:39 Dose: 4 mg Documented By: JUANCARLOS Vital Signs Vital signs: Vital Signs - 8 hr 12/22/22 20:50 12/22/22 21:07 12/22/22 21:30 Pulse Rate 83 86 77 Pulse Oximetry 99 96 99 12/22/22 22:00 Pulse Rate 76 Pulse Oximetry 100 Medical Decision Making Lab Data Lab results reviewed: Yes I reviewed the patient's lab results. 12/22/22 19:04 12/22/22 19:04 Labs: Lab Results 12/22/22 12/22/22 12/22/22 Range/Units 18:57 19:04 19:04 WBC 6.4 (4.5-11.0) X10^3/uL RBC 4.26 (4.0-5.2) X10^6/uL Hgb 13.4 (12.0-16.0) g/dL Hct 39.3 (36-46) % MCV 92.4 (80-100) fL MCH 31.6 (26-34) PG MCHC 34.2 (30-36) % RDW 13.1 (11.6-14.8) % Plt Count 171 (150-400) X10^3/uL Neut % (Auto) 52.1 (50-75) % Lymph % (Auto) 38.9 (25-40) % [place] % (Auto) 7.3 (3-14) % Eos % (Auto) 1.2 L (2-4) % Baso % (Auto) 0.5 (0-2) % Neut # (Auto) 3400 (5160-3550) /uL Lymph # (Auto) 2500 (0073-0279) /uL [place] # (Auto) 500 (0-900) /uL Eos # (Auto) 100 (0-450) /uL Baso # (Auto) 0 (0-100) /uL Sodium 138 (137-145) mmol/L Potassium 3.7 (3.4-5.1) mmol/L Chloride 104 (98-107) mmol/L Carbon Dioxide 25 (22-32) mmol/L BUN 18 H (7-17) mg/dL Creatinine 0.79 (0.52-1.04) mg/dL Estimated GFR > 60 (>60) mL/min BUN/Creatinine Ratio 22.8 H (6-22) Glucose 103 (80-110) mg/dL Calcium 9.6 (8.4-10.2) mg/dL Total Bilirubin 0.4 (0.2-1.3) mg/dL AST 31 (14-36) IU/L ALT 26 (<35) IU/L Alkaline Phosphatase 119 (38-126) U/L Total Protein 7.8 (6.3-8.2) g/dL Albumin 4.6 (3.5-5.0) g/dL Globulin 3.2 (1.7-4.1) g/dL Albumin/Globulin Ratio 1.4 (1.0-2.8) Lipase 79 (23-300) U/L Urine RBC None seen (0-5/HPF) Urine WBC None seen (0-5/HPF) Urine Bacteria None seen (None) Ur Culture Indicated? Cult not indicated Micro UA Comment Microscopic normal Urine Dip Bedside Urine Glucose Negative Bedside Urine Bilirubin - Negative Bedside Urine Ketone - Negative Urine Specific [place] 1.005 Bedside Urine Occult Blood + Bedside Urine pH 6.0 Bedside Urine Protein - Negative Bedside Urine Urobilinogen - Negative Bedside Urine Nitrite - Negative Bedside Urine Leukocytes - Negative Esterase Point of care testing: Urine Dip Bedside Urine Glucose Negative Bedside Urine Bilirubin - Negative Bedside Urine Ketone - Negative Urine Specific [place] 1.005 Bedside Urine Occult Blood + Bedside Urine pH 6.0 Bedside Urine Protein - Negative Bedside Urine Urobilinogen - Negative Bedside Urine Nitrite - Negative Bedside Urine Leukocytes - Negative Esterase Imaging Data CT scan - abdomen/pelvis: Radiologist's Impression: PROCEDURE:? CT ABDOMEN PELVIS W CON ? INDICATIONS:? Epigastric, periumbilical, left upper quadrant abdominal pain ? TECHNIQUE:? After the administration of oral and IV contrast, axial sections were acquired from the lung bases to the pubic symphysis.? Coronal and sagittal reformats were performed.? For radiation dose reduction, the following was used:? automated exposure control, adjustment of mA and/or kV according to patient size. ? COMPARISON:? [facility], CT, CT CHEST ABD PEL W CON, 04/25/2019, 17:16 ? FINDINGS:? Image quality:? Diagnostic.? ? Lung bases:? Unremarkable.? ? Heart:? Heart is normal in size. ? ? ABDOMEN: Liver:? No mass lesion. Gallbladder:? Surgically absent. Biliary ducts:? There is mild intra and extrahepatic biliary ductal dilatation, with the common bile duct measuring up to approximately 0.8 cm.? No calcified common duct stones or discrete obstructing mass visualized. Pancreas:? Unremarkable.? ? Spleen:? Normal in size.? ? Adrenal Glands:? No adrenal nodules.? ? Kidneys and Ureters:? No hydronephrosis.? ? ? Stomach and Bowel:? Stomach, small bowel loops, and colon are normal in caliber and wall thickness.? The appendix is normal.? There is colonic diverticulosis without acute diverticulitis. Peritoneum:? No abnormal intraperitoneal fluid.? No free air.? ? Ventral Wall: ? No hernia.? Abdominal Nodes:? No retroperitoneal or mesenteric adenopathy by size criteria.? Vessels:? Aorta and inferior vena cava are normal in size.? ? PELVIS: Pelvic Organs:? Unremarkable.? ? Bladder:? Unremarkable.? ? Pelvic Nodes: No enlarged lymph nodes.? Miscellaneous: No inguinal hernias are seen. ? ? ? Bones:? Visualized osseous structures demonstrate no suspicious focal lesions. ? IMPRESSION:? ? 1. Mild biliary ductal dilatation appears similar to the prior study and likely represents sequelae of prior cholecystectomy. ? 2. No definite acute intra-abdominal abnormality. ECG Data Attestation: I personally reviewed and interpreted this ECG as follows: Interpretation: Sinus rhythm Ventricular rate 93 Normal axis Normal QRS Normal QTC No ST T wave changes MDM Narrative Medical decision making narrative: Labs and CT scan are unremarkable. Upon my re-evaluation patient states the pain is completely gone. Unsure the exact etiology but there was no infectious cause. No surgical cause. No indication for antibiotics or admission to the hospital. Patient understands lack of a definitive diagnosis. Given the resolution symptoms will discharge patient home with return precautions. She expressed understanding and agreement with plan. Discharge Plan Departure Patient Disposition: Home Clinical Impression: Abdominal pain Instructions: DI for Abdominal Pain-Adult Activity Restrictions/Additional Instructions: Recommend that you continue to take all of your medications as directed. Contact your primary doctor for a follow-up. Return to the emergency department for new or worsening symptoms. Referrals: Miscellaneous,Doctor, MD [Primary Care Provider] - Stand Alone Forms: Patient Portal/API
--- NOTE | 2022-12-22 20:34 | DI.CT.S_ITS ---
PROCEDURE: CT ABDOMEN PELVIS W CON INDICATIONS: Epigastric, periumbilical, left upper quadrant abdominal pain TECHNIQUE: After the administration of oral and IV contrast, axial sections were acquired from the lung bases to the pubic symphysis. Coronal and sagittal reformats were performed. For radiation dose reduction, the following was used: automated exposure control, adjustment of mA and/or kV according to patient size. COMPARISON: [facility], CT, CT CHEST ABD PEL W CON, 04/25/2019, 17:16 FINDINGS: Image quality: Diagnostic. Lung bases: Unremarkable. Heart: Heart is normal in size. ABDOMEN: Liver: No mass lesion. Gallbladder: Surgically absent. Biliary ducts: There is mild intra and extrahepatic biliary ductal dilatation, with the common bile duct measuring up to approximately 0.8 cm. No calcified common duct stones or discrete obstructing mass visualized. Pancreas: Unremarkable. Spleen: Normal in size. Adrenal Glands: No adrenal nodules. Kidneys and Ureters: No hydronephrosis. Stomach and Bowel: Stomach, small bowel loops, and colon are normal in caliber and wall thickness. The appendix is normal. There is colonic diverticulosis without acute diverticulitis. Peritoneum: No abnormal intraperitoneal fluid. No free air. Ventral Wall: No hernia. Abdominal Nodes: No retroperitoneal or mesenteric adenopathy by size criteria. Vessels: Aorta and inferior vena cava are normal in size. PELVIS: Pelvic Organs: Unremarkable. Bladder: Unremarkable. Pelvic Nodes: No enlarged lymph nodes. Miscellaneous: No inguinal hernias are seen. Bones: Visualized osseous structures demonstrate no suspicious focal lesions. IMPRESSION: 1. Mild biliary ductal dilatation appears similar to the prior study and likely represents sequelae of prior cholecystectomy. 2. No definite acute intra-abdominal abnormality. Dictated by: Harshad Mclean M.D. on 12/22/2022 at 21:40 Approved by: Harshad Mclean M.D. on 12/22/2022 at 21:55
[2022-12-22] MEDS: ONDANSETRON 4 MG/2 ML INJ IV (20:39)
[2022-12-22] MEDS: MORPHINE 4 MG/ML INJ IV (20:39)
--- NOTE | 2022-12-22 20:40 | PC.NURSE ---
Pt reports 8/10 abd pain. Morphine 4 mg admin IV per orders.
[2022-12-22 20:50] VITALS: PULSE 83; O2SAT 99
[2022-12-22 21:07] VITALS: PULSE 86; O2SAT 96
[2022-12-22 21:30] VITALS: PULSE 77; O2SAT 99
[2022-12-22 22:00] VITALS: PULSE 76; O2SAT 100
== END 2022-12-22 22:36 | disposition home or self-care (01) ==
PROVIDERS: Emergency Provider Emergency Medicine
DX: R10.12 Left upper quadrant pain (principal)
CPT/HCPCS: 36415; 74177; 80053; 81003; 81015; 83690; 85025; 93005; 93010; 96374; 96375; 99284; J2270; J2405; Q9967

== ENCOUNTER → 2023-05-03 08:30 | Outpatient (CLI) | payer OTHER, SELFPAY ==
--- NOTE | 2023-05-03 | DI.MRI.S_ITS ---
PROCEDURE: MR KNEE LT WO CON INDICATIONS: Pain in left knee TECHNIQUE: Noncontrast sagittal PD fast spin echo and T2 fast spin echo with fat saturation, sagittal 3-D FLASH with fat saturation; coronal T1 spin echo and PD fast spin echo with fat saturation, and axial PD fast spin echo with fat saturation through the knee. COMPARISON: [facility], CR, XR KNEE 3 VIEWS LEFT, 01/28/2023, 15:31. [facility], MR, MR KNEE LT WO CON, 04/10/2018, 14:55. FINDINGS: Image quality: Excellent. Anterior Cruciate Ligament: Intact. Posterior Cruciate Ligament: Intact. Medial Collateral Ligament: Intact. Lateral Collateral Ligament: Intact. Medial Meniscus: Intermediate intrasubstance signal is seen at the body of the medial meniscus without extension to an articular surface, consistent with intrasubstance degeneration. Lateral Meniscus: There is horizontal oblique tearing of the body of the lateral meniscus extending to the inner third of the tibial articular surface. The tear has progressed when compared to the MRI from 04/10/2018. Medial and Lateral Tendons: The semimembranosus tendon insertions and meniscocapsular junction appear intact. Visualized portions of the pes anserinus tendons appear normal. No abnormal bursal fluid. The long and short heads of the biceps femoris tendon appear intact. The popliteus tendon appears intact. No signs of posterolateral corner injury. Iliotibial band appears normal. Anterior Structures: The quadriceps and patellar tendons appear intact. No patellar subluxation. No femoral trochlear dysplasia or ventral trochlear prominence. No edema in the infrapatellar fat pad. Bones: Focal step-off is seen at the lateral tibial plateau articular surface measuring approximately 2 mm in depth, consistent with a prior mildly depressed fracture. Healing changes are present with osseous bridging. Mild residual osseous edema is present. Medial Femorotibial Cartilage: Mild generalized partial-thickness cartilage thinning. Lateral Femorotibial Cartilage: Cartilage fissuring is seen overlying the fracture site at the lateral tibial plateau. Small marginal osteophytes are present. Patellofemoral Cartilage: Full-thickness cartilage loss is seen at the lateral patellar facet and adjacent lateral femoral trochlea. High-grade or full-thickness cartilage loss at the median ridge and medial facet of the patella. Soft Tissues: A small joint effusion is present. Trace medial popliteal cyst. The musculature surrounding the knee is normal in bulk. IMPRESSION: 1. Subacute to chronic minimally depressed fracture of the lateral tibial plateau with healing changes including osseous bridging. Mild residual osseous edema. Overlying cartilage fissuring is present. 2. Horizontal oblique tearing of the anterior horn and body of the lateral meniscus extending to the inner third of the tibial articular surface. 3. Mild intrasubstance degeneration in the medial meniscus without a discrete tear. 4. Cruciate and collateral ligaments are intact. 5. 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 6. Small joint effusion. Approved by: Fernandez Corral M.D. on 05/03/2023 at 17:59
== END ==
PROVIDERS: Referring Provider Physician Assistant; Visit Provider Physician Assistant
DX: M25.562 Pain in left knee (principal); S82.142D Displaced bicondylar fracture of left tibia, subsequent encounter for closed fracture with routine healing; S83.282A Other tear of lateral meniscus, current injury, left knee, initial encounter; M17.12 Unilateral primary osteoarthritis, left knee; M25.462 Effusion, left knee
CPT/HCPCS: 73721

== ENCOUNTER 2023-08-31 07:49 | Day surgery (SDC) | payer OTHER, SELFPAY ==
--- NOTE | 2023-08-31 08:19 | P.HP_ITS ---
History of Present Illness History of Present Illness Date Patient Seen: 08/31/23 Chief complaint: Colonoscopy Narrative: Screening colonoscopy at a routine 10 year interval. [facility] Medical History (Updated 01/06/23 @ 00:01 by ) Healthy adult Surgical History No pertinent past surgical history Social History Smoking Status: Former smoker alcohol intake: current substance use type: does not use Meds Home Medications and Allergies Allergies Allergy/AdvReac Type Severity Reaction Status Date / Time codeine Allergy Unknown Verified 04/28/22 07:19 Exam Narrative Exam Narrative: Oropharynx free of lesions Chest clear to auscultation percussion Cardiac exam reveals no S3 or murmur Assessment & Plan Assessment & Plan narrative: Routine screening colonoscopy. Risks, benefits, alternatives have been explained.
--- NOTE | 2023-08-31 08:20 | PM.OP.COLON ---
Operative Date/Time/Diagnoses Date of procedure: 08/31/23 Pre-op diagnosis: See indication and findings Procedure & Clinicians Study performed: Colonoscopy Indications: Routine screening Surgeon: Jada Molina Procedure Notes Procedure in detail: After informed consent was obtained the patient was placed left lateral decubitus position. The video colonoscope was introduced the rectum and slowly advanced to cecum. Preparation was good. On slow withdrawal mucosa was carefully examined. The scope was removed. The patient tolerated procedure well. Blood loss none Complications none Sedation mac Findings 1. Rare small diverticula in the sigmoid colon 2. Otherwise negative colonoscopy to cecum Patient should have follow-up colonoscopy in 10 years.
[2023-08-31 08:29] VITALS: BP 123/86; PULSE 79; RESP 16; TEMP 36.9; O2SAT 100
[2023-08-31] MEDS: LACTATED RINGERS 1,000 ML 42 ML IV (08:32)
[2023-08-31 09:30] VITALS: BP 109/73; PULSE 85; RESP 15; TEMP 36.2; O2SAT 97
[2023-08-31 09:36] VITALS: BP 117/74; PULSE 84; RESP 14; TEMP 36.2; O2SAT 98
[2023-08-31 09:41] VITALS: BP 118/71; PULSE 92; RESP 20; TEMP 36.2; O2SAT 99
[2023-08-31 09:52] VITALS: BP 119/70; PULSE 79; RESP 16; TEMP 36.3; O2SAT 98
== END 2023-08-31 09:53 | disposition home or self-care (01) ==
PROVIDERS: Referring Provider Internal Medicine Gastroenterology; Visit Provider Internal Medicine Gastroenterology
PROC: 0DJD8ZZ Inspection of Lower Intestinal Tract, Via Natural or Artificial Opening Endoscopic (ICD-10-PCS; CPT 45378; principal; 2023-08-31 09:00)
DX: Z12.11 Encounter for screening for malignant neoplasm of colon (principal); K57.30 Diverticulosis of large intestine without perforation or abscess without bleeding
CPT/HCPCS: 45378; J2704